=== PATIENT | female | born 1990 ===

== ENCOUNTER 2018-06-21 09:17 | Outpatient (CLI) | payer OTHER ==
[~2018-06-21] VITALS: Ht 160 cm; Wt 57.2 kg
== END 2018-06-21 09:35 | disposition home or self-care (01) ==
LOC: OFIC 805 09:17
DX: R09.81 Nasal congestion (principal); J30.89 Other allergic rhinitis; J34.3 Hypertrophy of nasal turbinates

== ENCOUNTER 2018-08-05 07:51 | Outpatient (CLI) | payer OTHER ==
[~2018-08-05] VITALS: Ht 152.4 cm; Wt 57.2 kg
== END 2018-08-05 08:10 | disposition home or self-care (01) ==
LOC: OFIC 805 07:51
DX: R09.81 Nasal congestion (principal); J30.89 Other allergic rhinitis; J34.3 Hypertrophy of nasal turbinates